=== PATIENT | female | born 1965 | race Caucasian/White ===

== ENCOUNTER 2023-02-13 15:44 | Inpatient (IN) | payer MEDICARE, OTHER, SELFPAY ==
[2023-02-13] VITALS (8 sets, daily range): BP systolic 68–112; BP diastolic 38–50; PULSE 59–93; RESP 18–20; TEMP 36.3–36.4; O2SAT 91–96; BMI 29.4
--- NOTE | 2023-02-13 15:49 | XR_ITS ---
PROCEDURE INFORMATION: Exam: XR Chest Exam date and time: 02/13/23 04:27 PM Age: 57 years old Clinical indication: Pain; Chest pressure; Additional info: A flutter TECHNIQUE: Imaging protocol: Radiologic exam of the chest. Views: 1 view. COMPARISON: CR CXR CHEST(2 VIEWS-NOT PORTABLE) 05/28/17 01:40 PM FINDINGS: Lungs: Unremarkable. No consolidation. Pleural spaces: Unremarkable. No pleural effusion. No pneumothorax. Heart/Mediastinum: Unremarkable. No cardiomegaly. Bones/joints: Unremarkable. IMPRESSION: No acute findings. Low volume chest.
--- NOTE | 2023-02-13 16:01 | ECG_ITS ---
APPROVED REPORT Exam: Resting ECG HR:90 bpm ECG Measurements Heart Rate 90 AXES NV 163 P 249 QRSd 72 QRS 46 QT 410 T 220 QTc 458 Conclusion A Fib/flutter ST DEVIATION AND MODERATE T-WAVE ABNORMALITY, CONSIDER INFERIOR ISCHEMIA [-0.1+ mV T-WAVE IN II/aVF] ABNORMAL ECG UNCONFIRMED REPORT Electronically signed by : Rafael Palmer MD 02/14/2023 14:32:21
[2023-02-13 16:10] LABS: Coronavirus 19, PCR Not Detected (NotDetected); Influenza A, PCR Not Detected (NotDetected); Influenza B, PCR Not Detected (NotDetected)
[2023-02-13 16:12] LABS: Basophils % 0.2 % (0.1-2.0); Eosinophils # 0.1 K/mm3 (0.0-0.4); Eosinophils % 1.1 % (0.1-12.0); Hematocrit 50.4 % (37.0-47.0); Hemoglobin 15.8 g/dL (12.2-16.2); Lymphocytes # 1.3 K/mm3 (0.7-4.5); Lymphocytes % 10.7 % (10-50); Mean Corpuscular HGB Conc 31.4 g/dL (31.8-35.4); Mean Corpuscular Hemoglobin 36.6 pg (27.0-31.2); Mean Corpuscular Volume 116.7 fl (81-99); Mean Platelet Volume 8.2 fl (7.4-10.4); Monocytes # 0.3 K/mm3 (0.1-1.0); Monocytes % 2.5 % (1.7-9.3); Neutrophils # 10.7 K/mm3 (1.8-7.8); Neutrophils % 85.5 % (37.0-80.0); Platelet Count 157 K/mm3 (142-424); Red Blood Count 4.32 M/mm3 (4.20-5.40); Red Cell Distribution Width 14.8 % (11.5-17.5); White Blood Count 12.5 K/mm3 (4.8-10.8)
[2023-02-13 16:19] LABS: ABG Base Excess -8.6 mmol/L (-2.4-2.3); ABG HCO3 17.5 mmhg (22.0-26.0); ABG Oxygen Saturation 94 % (90-100); ABG PCO2 34.6 mmhg (35.0-45.0); ABG PH 7.32 mmol/L (7.35-7.45); ABG PO2 70.3 mmhg (80-100); ABG TCO2 18.6 mmhg (23-27)
[2023-02-13 16:22] LABS: MANUAL DIFFERENTIAL MANUAL DIFFERENTIAL (MANUAL DIFF)
[2023-02-13 16:23] LABS: Chloride 103 mmol/L (98-107)
[2023-02-13 16:24] LABS: Potassium 3.8 mmoL/L (3.5-5.1); Sodium 136 mmol/L (136-145)
[2023-02-13 16:26] LABS: Alanine Aminotransferase 28 U/L (12-78); Alkaline Phosphatase 66 U/L (38-126); Aspartate Amino Transferase 31 U/L (14-36); Bilirubin,Total 0.4 mg/dl (0.2-1.3); Blood Urea Nitrogen 34 mg/dl (7-17); Creatinine Clearance Estimated 51 mL/min (50-200); Estimated Glomerular Filt Rate 33 ml/min (>60); GFR (African American) 40 ML/MIN (>60)
[2023-02-13 16:27] LABS: Albumin Level 3.2 g/dl (3.5-5.0); Albumin/Globulin Ratio 1.2 (1.1-1.8); Anion Gap 11.8 mEq/L (5-15); Calcium 7.7 mg/dl (8.4-10.2); Carbon Dioxide 25 mmol/L (22.0-30.0); Globulin 2.7 g/dL (1.3-3.2); Glucose 119 mg/dl (74-100); Magnesium 1.3 mg/dl (1.6-2.3); Phosphorous 4.4 mg/dl (2.5-4.5); Total Protein,Serum 5.9 g/dl (6.3-8.2)
[2023-02-13 16:38] LABS: Troponin I 0.07 ng/ml (0.00-0.034)
[2023-02-13 16:51] LABS: Eosinophils % 2 % (0-3); Lymphocytes % 11 % (10-50); Monocytes % 3 % (2-9); Neutrophils % 84 % (42-76); Total Cells Counted 100
[2023-02-13 16:52] LABS: Macrocytosis 1+; Stomatocytes 1+
[2023-02-13 16:53] LABS: Platelet Estimate Normal
[2023-02-13 16:54] LABS: Lactic Acid 0.9 mmol/L (0.7-2.1)
[2023-02-13 16:56] LABS: NT Pro Brain Natriuretic Pep. 4800 pg/mL (0-125)
--- NOTE | 2023-02-13 17:30 | EXP.HP ---
History of Present Illness *Admission Date: 02/13/23 *Reason for visit:: Weakness *History of present illness: 77-year-old female presenting as a transfer from [facility] emergency department due to a flutter and hypotension. On arrival to [facility] patient was in a flutter with RVR. Hypotensive. Reportedly had cardiomyopathy for which she was indicated a defibrillator however was lost to follow-up and did not receive any device. Noted to have an KAY. Started on Zosyn and given 3 L of normal saline and transferred to [facility] On arrival she is still hypotensive but maps have improved, she is feeling slightly better. Patient states that she has had 2 days of severe weakness nausea diarrhea. She has been unable to take care of daily activities. Symptoms started shortly after she was with her grandson. No sick contacts, and grandson is not ill. Says she goes in and out of atrial fibrillation, usually has palpitations when she is in it. Her symptoms are not consistent with prior episodes of A-fib. Drinks alcohol daily, no withdrawal symptoms previously. no other concerns or symptoms. [facility] Disclaimer: The information contained in this section may have been updated after the patient was seen, as this information can be updated by other users. Medical History (Updated 02/13/23 @ 17:43 by Anirudh Anguiano MD) Afib Alcohol dependence CHF (congestive heart failure) Cholecystitis COPD (chronic obstructive pulmonary disease) HLD (hyperlipidemia) HTN (hypertension) Surgical History History of ankle surgery Family History Other No significant family history Social History Smoking Status: Current every day smoker alcohol intake: current current occupational status: disabled Travel in the last 8 weeks: None Review of Systems Review of Systems Review of systems:: pertinent systems reviewed and negative unless documented below Meds Home Medications and Allergies Home Medications Medication Instructions Recorded Confirmed Type albuterol sulfate 90 mcg/actuation 1 puff inhalation QID PRN 02/13/23 02/13/23 History aerosol inhaler Breathing Problems atorvastatin 40 mg tablet 40 mg PO DAILY HLD 02/13/23 02/13/23 History bumetanide 2 mg tablet 2 mg PO DAILY CHF 02/13/23 02/13/23 History carvedilol 6.25 mg tablet 6.25 mg PO DAILY BLOOD PRESSURE 02/13/23 02/13/23 History diltiazem HCl 240 mg capsule,24 240 mg PO DAILY AFIB 02/13/23 02/13/23 History hr,extended release ipratropium 20 mcg-albuterol 100 1 puff inhalation DAILY Breathing 02/13/23 02/13/23 History mcg/actuation mist for inhalation problems (Combivent Respimat) sacubitril 24 mg-valsartan 26 mg 1 tab PO DAILY CHF 02/13/23 02/13/23 History tablet (Entresto) spironolactone 25 mg tablet 25 mg PO DAILY CHF 02/13/23 02/13/23 History New Prescriptions to Start Prescriptions: Allergies Allergy/AdvReac Type Severity Reaction Status Date / Time No Known Allergies Allergy Verified 02/13/23 15:49 Exam Data for Last 24 hours Vital signs and Labs for Last 24 Hours: Temp Pulse Resp BP Pulse Ox 97.6 F 90 18 112/47 L 96 02/13/23 16:00 02/13/23 16:43 02/13/23 16:43 02/13/23 16:43 02/13/23 16:43 Laboratory Results - last 24 hr 02/13/23 15:57: SARS-CoV-2 (PCR) Not detected, Influenza A Untype (PCR) Not detected, Influenza Type B (PCR) Not detected 02/13/23 15:57: WBC 12.5 H, RBC 4.32, Hgb 15.8, Hct 50.4 H, MCV 116.7 H, MCH 36.6 H, MCHC 31.4 L, RDW 14.8, Plt Count 157, MPV 8.2, Neut % (Auto) 85.5 H, Lymph % (Auto) 10.7, [place] % (Auto) 2.5, Eos % (Auto) 1.1, Baso % (Auto) 0.2, Neut # (Auto) 10.7 H, Lymph # (Auto) 1.3, [place] # (Auto) 0.3, Eos # (Auto) 0.1, Baso # (Auto) 0.0, Total Counted 100, Neutrophils % (Manual) 84 H, Lymphocytes % (Manoj
--- NOTE | 2023-02-13 18:31 | PC.NURSE ---
PT IS SITTING UP IN BED WITH FAMILY AT BEDSIDE. ALERT AND ORIENTED X4. WHEN PT INITIALLY ARRIVED TO THE FLOOR BP WAS 76/41 (RIGHT ARM) 72/50 (LEFT ARM). AFLUTTER ON TELEMETRY. HR 91. PT WAS TOTALLY COHERENT AND ABLE TO ANSWER QUESTIONS. NOTIFIED HOSPITALIST (ORDERS RECEIVED). PT RECEIVED AN ADDITIONAL LR IVF BOLUS. AFTER BOLUS PT'S MANUAL BP 72/42. O2 SATURATION 90-93 ON 3 L NC. LUNG SOUNDS HAVE SCATTERED RHONCHI AND BILATERAL CRACKLES. NOTIFIED HOSPITALIST AND HE STATED TO CONTINUE TO MONITOR PT AND DID NOT WANT TO START A VASOPRESSOR FOR NOW. PT WAS ABLE TO TOLERATE GETTING UP TO THE BSC WITH 1 ASSIST. NO COMPLAINTS OF LIGHTHEADEDNESS/DIZZINESS. PT VOIDED 1200 ML'S. UA COLLECTED AND SENT TO LAB. WILL CONTINUE TO MONITOR.
[2023-02-13 18:50] LABS: Microscopic, Urine URINE MICROSCOPIC (MICROSCOPIC)
[2023-02-13 18:55] LABS: Appearance,Urine CLEAR (Clear); Bilirubin,Urine Negative (Negative); Blood, Urine Negative (Negative); Color,Urine YELLOW (Yellow); Glucose,Urine (UA) Negative (Negative); Ketones,Urine Negative (Negative); Leukocyte Esterase,Urine TRACE (Negative); Nitrate,Urine Negative (Negative); Protein,Urine Negative (Negative); Urobilinogen,Urine 0.2 EU/dl (0.2)
[2023-02-13 19:14] LABS: Bacteria,Urine Trace /lpf
[2023-02-13 19:52] LABS: Troponin I 0.05 ng/ml (0.00-0.034)
[2023-02-13 22:55] LABS: Lactate Dehydrogenase 434 U/L (313-618)
[2023-02-13 22:57] LABS: Hemoglobin A1C 5.7 % (4.0-6.0)
--- NOTE | 2023-02-13 23:37 | EXP.EVENT.NO ---
Patient BP decreased below 70 SYS . patient in no acute distress. having talked with Dr. Anguiano at shift change and by phone, steroid added, nebulizers and started levophed. not able to obtain all labs . bp at && sys levophed increased . antibiotic changed .
--- NOTE | 2023-02-13 23:43 | EXP.HP ---
History of Present Illness *Admission Date: 02/13/23 *History of present illness: 77-year-old female presenting as a transfer from [facility] emergency department due to a flutter and hypotension. On arrival to [facility] patient was in a flutter with RVR. Hypotensive. Reportedly had cardiomyopathy for which she was indicated a defibrillator however was lost to follow-up and did not receive any device. Noted to have an KAY. Started on Zosyn and given 3 L of normal saline and transferred to [facility] On arrival she is still hypotensive but maps have improved, she is feeling slightly better. Patient states that she has had 2 days of severe weakness nausea diarrhea. She has been unable to take care of daily activities. Symptoms started shortly after she was with her grandson. No sick contacts, and grandson is not ill. Says she goes in and out of atrial fibrillation, usually has palpitations when she is in it. Her symptoms are not consistent with prior episodes of A-fib. Drinks alcohol daily, no withdrawal symptoms previously. no other concerns or symptoms. [facility] Disclaimer: The information contained in this section may have been updated after the patient was seen, as this information can be updated by other users. Medical History (Updated 02/13/23 @ 17:43 by Anirudh Anguiano MD) Afib Alcohol dependence CHF (congestive heart failure) Cholecystitis COPD (chronic obstructive pulmonary disease) HLD (hyperlipidemia) HTN (hypertension) Surgical History History of ankle surgery Family History Other No significant family history Social History (Updated 02/13/23 @ 17:44 by Anirudh Anguiano MD) Smoking Status: Current every day smoker alcohol intake: current current occupational status: disabled Travel in the last 8 weeks: None Meds Home Medications and Allergies Home Medications Medication Instructions Recorded Confirmed Type albuterol sulfate 90 mcg/actuation 1 puff inhalation QID PRN 02/13/23 02/13/23 History aerosol inhaler Breathing Problems atorvastatin 40 mg tablet 40 mg PO DAILY HLD 02/13/23 02/13/23 History bumetanide 2 mg tablet 2 mg PO DAILY CHF 02/13/23 02/13/23 History carvedilol 6.25 mg tablet 6.25 mg PO DAILY BLOOD PRESSURE 02/13/23 02/13/23 History diltiazem HCl 240 mg capsule,24 240 mg PO DAILY AFIB 02/13/23 02/13/23 History hr,extended release ipratropium 20 mcg-albuterol 100 1 puff inhalation DAILY Breathing 02/13/23 02/13/23 History mcg/actuation mist for inhalation problems (Combivent Respimat) sacubitril 24 mg-valsartan 26 mg 1 tab PO DAILY CHF 02/13/23 02/13/23 History tablet (Entresto) spironolactone 25 mg tablet 25 mg PO DAILY CHF 02/13/23 02/13/23 History New Prescriptions to Start Prescriptions: Allergies Allergy/AdvReac Type Severity Reaction Status Date / Time No Known Allergies Allergy Verified 02/13/23 15:49 Exam Data for Last 24 hours Vital signs and Labs for Last 24 Hours: Temp Pulse Resp BP Pulse Ox FiO2 97.4 F L 80 18 76/38 L 92 L 32 02/13/23 20:00 02/13/23 23:04 02/13/23 22:00 02/13/23 22:00 02/13/23 22:00 02/13/23 23:03 Laboratory Results - last 24 hr 02/13/23 15:57: SARS-CoV-2 (PCR) Not detected, Influenza A Untype (PCR) Not detected, Influenza Type B (PCR) Not detected 02/13/23 15:57: WBC 12.5 H, RBC 4.32, Hgb 15.8, Hct 50.4 H, MCV 116.7 H, MCH 36.6 H, MCHC 31.4 L, RDW 14.8, Plt Count 157, MPV 8.2, Neut % (Auto) 85.5 H, Lymph % (Auto) 10.7, [place] % (Auto) 2.5, Eos % (Auto) 1.1, Baso % (Auto) 0.2, Neut # (Auto) 10.7 H, Lymph # (Auto) 1.3, [place] # (Auto) 0.3, Eos # (Auto) 0.1, Baso # (Auto) 0.0, Total Counted 100, Neutrophils % (Manual) 84 H, Lymphocytes % (Manual) 11, Monocytes % (Manual) 3, Eosinophils % (Manual) 2, Platelet Estimate Normal, Macrocytosis 1+, Stomatocytes 1+ 02/13/23 1
--- NOTE | 2023-02-13 23:44 | PC.NURSE ---
Notified Edward OTT that 4 different staff members attempted to get labs on pt and were unsuccessful. INSTRUCTOR KINDERGARTEN states to cancel lab orders at this time.
--- NOTE | 2023-02-13 23:54 | PC.NURSE ---
Levo titrated up to 6mcg/min @2200 Levo titrated up to 8mcg/min @2334
--- NOTE | 2023-02-13 23:55 | PC.NURSE ---
Levo gtt titrated up to 10mcg/min
[2023-02-14] VITALS (25 sets, daily range): BP systolic 62–133; BP diastolic 31–80; PULSE 68–123; RESP 14–28; TEMP 36.5–36.9; O2SAT 85–98; BMI 30.2
--- NOTE | 2023-02-14 00:05 | PC.NURSE ---
Levo gtt to 12mcg/min at this time
--- NOTE | 2023-02-14 04:14 | PC.NURSE ---
Levo titrated to 16mcg/min @0030
--- NOTE | 2023-02-14 04:51 | PC.NURSE ---
PT HAS RESTED INTERMITTENTLY THIS SHIFT. PLACED ON LEVO DRIP, CURRENT RATE IS 16MCG/MIN BP IS STABLE. LUNGS ARE CRACKLY BILATERALLY. PT REMAINS ALERT AND ORIENTED. HAS BEEN A-FIB/FLUTTER TO NSR ON TELE. NO C/O PAIN. REMAINS ON 3L NASAL CANNULA. CALL CASTELLANOS WITHIN REACH.
[2023-02-14 07:01] LABS: Basophils % 0.1 % (0.1-2.0); Eosinophils # 0.1 K/mm3 (0.0-0.4); Eosinophils % 0.6 % (0.1-12.0); Hematocrit 42.9 % (37.0-47.0); Lymphocytes # 0.6 K/mm3 (0.7-4.5); Lymphocytes % 3.9 % (10-50); Mean Corpuscular Hemoglobin 36.1 pg (27.0-31.2); Mean Corpuscular Volume 116.7 fl (81-99); Mean Platelet Volume 7.9 fl (7.4-10.4); Monocytes # 0.3 K/mm3 (0.1-1.0); Monocytes % 1.9 % (1.7-9.3); Neutrophils # 14.5 K/mm3 (1.8-7.8); Neutrophils % 93.5 % (37.0-80.0); Platelet Count 179 K/mm3 (142-424); Red Blood Count 3.67 M/mm3 (4.20-5.40); Red Cell Distribution Width 14.9 % (11.5-17.5); White Blood Count 15.5 K/mm3 (4.8-10.8)
--- NOTE | 2023-02-14 07:04 | PC.NURSE ---
Titrated Levo gtt to 14mcg/min at this time
[2023-02-14 07:06] LABS: MANUAL DIFFERENTIAL MANUAL DIFFERENTIAL (MANUAL DIFF)
[2023-02-14 07:07] LABS: Alanine Aminotransferase 37 U/L (12-78); Albumin Level 3.1 g/dl (3.5-5.0); Albumin/Globulin Ratio 1.2 (1.1-1.8); Alkaline Phosphatase 69 U/L (38-126); Anion Gap 15.3 mEq/L (5-15); Aspartate Amino Transferase 35 U/L (14-36); Bilirubin,Total 0.2 mg/dl (0.2-1.3); Blood Urea Nitrogen 25 mg/dl (7-17); Calcium 7.4 mg/dl (8.4-10.2); Carbon Dioxide 19 mmol/L (22.0-30.0); Chloride 106 mmol/L (98-107); Chol/HDL Ratio 1.6 (1-3.5); Cholesterol 151 mg/dl (140-200); Creatinine Clearance Estimated 70 mL/min (50-200); Estimated Glomerular Filt Rate 46 ml/min (>60); GFR (African American) 56 ML/MIN (>60); Globulin 2.6 g/dL (1.3-3.2); Glucose 238 mg/dl (74-100); HDL Cholesterol 96 mg/dl (40-60); Magnesium 1.4 mg/dl (1.6-2.3); Phosphorous 3.8 mg/dl (2.5-4.5); Potassium 4.3 mmoL/L (3.5-5.1); Sodium 136 mmol/L (136-145); Total Protein,Serum 5.7 g/dl (6.3-8.2); Triglycerides 190 mg/dl (30-150); VLDL Cholesterol 38 mg/dL (0-40)
[2023-02-14 07:17] LABS: INR 1.12 (0.9-1.1)
[2023-02-14 07:18] LABS: Direct LDL Cholesterol 34.24 mg/dL (100-129)
--- NOTE | 2023-02-14 08:07 | EXP.PHA.CONS ---
Pharmacy Consult Date: 02/14/23 Time: 08:07 Referring provider: DR. RAMOS Reason for Consult:: VANCOMYCIN DOSING Allergies Allergy/AdvReac Type Severity Reaction Status Date / Time No Known Allergies Allergy Verified 02/13/23 15:49 Home Medications Medication Instructions Recorded Confirmed Type albuterol sulfate 90 mcg/actuation 1 puff inhalation QID PRN 02/13/23 02/13/23 History aerosol inhaler Breathing Problems atorvastatin 40 mg tablet 40 mg PO DAILY HLD 02/13/23 02/13/23 History bumetanide 2 mg tablet 2 mg PO DAILY CHF 02/13/23 02/13/23 History carvedilol 6.25 mg tablet 6.25 mg PO DAILY BLOOD PRESSURE 02/13/23 02/13/23 History diltiazem HCl 240 mg capsule,24 240 mg PO DAILY AFIB 02/13/23 02/13/23 History hr,extended release ipratropium 20 mcg-albuterol 100 1 puff inhalation DAILY Breathing 02/13/23 02/13/23 History mcg/actuation mist for inhalation problems (Combivent Respimat) sacubitril 24 mg-valsartan 26 mg 1 tab PO DAILY CHF 02/13/23 02/13/23 History tablet (Entresto) spironolactone 25 mg tablet 25 mg PO DAILY CHF 02/13/23 02/13/23 History New Prescriptions to Start Prescriptions: Height: 1.68 m Weight: 85.139 kg Laboratory Results:: Laboratory Results - last 24 hr 02/13/23 15:57: SARS-CoV-2 (PCR) Not detected, Influenza A Untype (PCR) Not detected, Influenza Type B (PCR) Not detected 02/13/23 15:57: WBC 12.5 H, RBC 4.32, Hgb 15.8, Hct 50.4 H, MCV 116.7 H, MCH 36.6 H, MCHC 31.4 L, RDW 14.8, Plt Count 157, MPV 8.2, Neut % (Auto) 85.5 H, Lymph % (Auto) 10.7, [place] % (Auto) 2.5, Eos % (Auto) 1.1, Baso % (Auto) 0.2, Neut # (Auto) 10.7 H, Lymph # (Auto) 1.3, [place] # (Auto) 0.3, Eos # (Auto) 0.1, Baso # (Auto) 0.0, Total Counted 100, Neutrophils % (Manual) 84 H, Lymphocytes % (Manual) 11, Monocytes % (Manual) 3, Eosinophils % (Manual) 2, Platelet Estimate Normal, Macrocytosis 1+, Stomatocytes 1+ 02/13/23 15:57: Sodium 136, Potassium 3.8, Chloride 103, Carbon Dioxide 25, Anion Gap 11.8, BUN 34 H, Creatinine 1.60 H, Estimated Creat Clear 51, Estimated GFR 33 L, Est GFR ( Amer) 40 L, Glucose 119 H, Calcium 7.7 L, Phosphorus 4.4, Magnesium 1.3 L, Total Bilirubin 0.4, AST 31, ALT 28, Alkaline Phosphatase 66, Troponin I 0.07 H, NT-Pro-B Natriuret Pep 4800 H, Total Protein 5.9 L, Albumin 3.2 L, Globulin 2.7, Albumin/Globulin Ratio 1.2 02/13/23 15:57: Hemoglobin A1c 5.7 02/13/23 16:00: ABG pH 7.32 L, ABG pCO2 34.6 L, ABG pO2 70.3 L, ABG HCO3 17.5 L, ABG Total CO2 18.6 L, ABG O2 Saturation 94, ABG Base Excess -8.6 L 02/13/23 16:30: Lactate 0.9 02/13/23 18:02: Urine Color Yellow, Urine Appearance Clear, Urine pH 5.0, Ur Specific [place] 1.010, Urine Protein Negative, Urine Glucose (UA) Negative, Urine Ketones Negative, Urine Blood Negative, Urine Nitrate Negative, Urine Bilirubin Negative, Urine Urobilinogen 0.2, Ur Leukocyte Esterase Trace, Urine RBC None, Urine WBC 10-20, Ur Squamous Epith Cells 5-10, Urine Bacteria Trace 02/13/23 19:10: Troponin I 0.05 H 02/13/23 19:10: Lactate Dehydrogenase 434 02/14/23 06:50: WBC 15.5 H, RBC 3.67 L, Hct 42.9, MCV 116.7 H, MCH 36.1 H, MCHC 31.0 L, RDW 14.9, Plt Count 179, MPV 7.9, Neut % (Auto) 93.5 H, Lymph % (Auto) 3.9 L, [place] % (Auto) 1.9, Eos % (Auto) 0.6, Baso % (Auto) 0.1, Neut # (Auto) 14.5 H, Lymph # (Auto) 0.6 L, [place] # (Auto) 0.3, Eos # (Auto) 0.1, Baso # (Auto) 0.0 02/14/23 06:50: PT 12.0, INR 1.12 H 02/14/23 06:50: Sodium 136, Potassium 4.3, Chloride 106, Carbon Dioxide 19 L, Anion Gap 15.3 H, BUN 25 H D, Creatinine 1.20 H D, Estimated Creat Clear 70, Estimated GFR 46 L, Est GFR ( Amer) 56 L D, Glucose 238 H D, Calcium 7.4 L, Phosphorus 3.8, Magnesium 1.4 L, Total Bilirubin 0.2, AST 35, ALT 37 D, Alkaline Phosphatase 69, Total Protein 5.7 L, Albumin 3.1 L, Globulin 2.6, Albumin/Globulin Ratio 1.2, Triglycerides 190 H, Cholesterol 151, LDL Cholesterol Direct 34.24 L, VLDL Cholesterol 38, HDL Cholesterol 96 H, Cholesterol/HDL Ratio 1.6 Medical History: Medical H
[2023-02-14 08:20] LABS: Lymphocytes % 12 % (10-50); Monocytes % 4 % (2-9); Neutrophils % 84 % (42-76); Platelet Estimate Normal; Total Cells Counted 100
[2023-02-14 08:21] LABS: Hemoglobin 13.3 g/dL (12.2-16.2); Macrocytosis 2+
--- NOTE | 2023-02-14 08:51 | HMH.PHAINT1 ---
Pharmacy Intervention Comments: MEDICATION RECONCILIATION COMPLETED ON PATIENT USING EXTERNAL FILL HISTORY FROM PHARMACY AND PATIENT INTERVIEW. -ELSA MORENO, NIKKOD
--- NOTE | 2023-02-14 09:13 | EXP.ACUTE.PN ---
Subjective *Date: 02/14/23 *Time: 09:13 Interval history: No issues, feeling better. Medical Exam Vital signs and Labs for Last 24 Hours: Vital Signs Temp Pulse Pulse Pulse Resp BP BP 02/14/23 08:00 82 02/14/23 08:00 79 20 102/65 L 02/14/23 08:00 97.9 F 02/14/23 07:03 117/75 02/14/23 06:30 82 02/14/23 06:30 82 02/14/23 06:30 02/14/23 06:00 83 20 110/65 02/14/23 04:00 80 02/14/23 00:30 62/31 L 02/14/23 04:00 98.2 F 77 18 96/63 L 02/14/23 00:00 70 02/14/23 02:00 73 18 89/55 L 02/14/23 01:00 79 94/48 L 02/13/23 20:00 70 02/14/23 00:00 02/14/23 00:00 97.7 F 68 17 83/45 L 02/13/23 23:45 76 68/43 L 02/13/23 23:34 75 77/43 L 02/13/23 22:00 72 18 76/38 L 02/13/23 20:00 97.4 F L 59 L 18 73/40 L 02/13/23 20:00 02/13/23 23:04 80 02/13/23 23:04 81 02/13/23 23:03 02/13/23 18:00 89 20 74/45 L 02/13/23 16:43 90 18 112/47 L 02/13/23 16:00 97.6 F 93 H 18 72/50 L 02/13/23 16:00 91 H 20 76/41 L 02/13/23 16:00 91 H Pulse Ox FiO2 02/14/23 08:00 02/14/23 08:00 95 02/14/23 08:00 02/14/23 07:03 02/14/23 06:30 02/14/23 06:30 02/14/23 06:30 93 L 02/14/23 06:00 92 L 02/14/23 04:00 02/14/23 00:30 02/14/23 04:00 93 L 02/14/23 00:00 02/14/23 02:00 92 L 02/14/23 01:00 02/13/23 20:00 02/14/23 00:00 92 L 02/14/23 00:00 92 L 02/13/23 23:45 02/13/23 23:34 02/13/23 22:00 92 L 02/13/23 20:00 91 L 02/13/23 20:00 91 L 02/13/23 23:04 02/13/23 23:04 02/13/23 23:03 32 02/13/23 18:00 92 L 02/13/23 16:43 96 02/13/23 16:00 95 02/13/23 16:00 95 02/13/23 16:00 Intake and Output 02/13/23 02/14/23 02/14/23 23:59 07:59 15:59 Intake Total 1758 / 1758 1338.475 / 1578.475 240 / 1578.475 Output Total 1200 / 1200 1750 / 1750 Balance 558 / 558 -411.525 / -171.525 240 / -171.525 Intake: Intake, Oral Amount 240 / 240 Intake, Total IV Amount 1758 / 1758 1338.475 / 1338.475 0.9 % Sodium Chloride 1000ML 1, 620 / 620 000 ml @ 150 mls/hr IV .Q6H40M [facility] Rx#:[id number] Cefepime HCl 1 gm In 0.9 % 50 / 50 Sodium Chloride 50 ml @ 100 mls /hr IV Q12H [facility] Rx#:[id number] Lactated Ringers 1000ML 1,000 1758 / 1758 ml @ 999 mls/hr IV .Q1H1M [facility] Rx#:[id number] Norepinephrine Bitartrate 8 mg 182 / 182 In Dextrose 5 % in Water 250 ml @ 5 MCG/MIN 9.675 mls/hr IV . Q24H [facility] Rx#:[id number] Piperacillin/Tazo 3.375 gm In 0 50 / 50 .9 % Sodium Chloride 50 ml @ 100 mls/hr IV Q6H [facility] Rx#: [id number] Vancomycin/Water For Inj (Peg) 350 / 350 1.75 gm In 350 ml @ 175 mls/hr IV ONCE [facility] Rx#:[id number] Output: Output, Urine Amount 1200 / 1200 1750 / 1750 Other: Number of Unmeasured Voids 1 Weight 85.139 kg 85.139 kg Patient Weight 02/14/23 23:59 Weight 85.139 kg Laboratory Results - last 24 hr 02/13/23 15:57: SARS-CoV-2 (PCR) Not detected, Influenza A Untype (PCR) Not detected, Influenza Type B (PCR) Not detected 02/13/23 15:57: WBC 12.5 H, RBC 4.32, Hgb 15.8, Hct 50.4 H, MCV 116.7 H, MCH 36.6 H, MCHC 31.4 L, RDW 14.8, Plt Count 157, MPV 8.2, Neut % (Auto) 85.5 H, Lymph % (Auto) 10.7, [place] % (Auto) 2.5, Eos % (Auto) 1.1, Baso % (Auto) 0.2, Neut # (Auto) 10.7 H, Lymph # (Auto) 1.3, [place] # (Auto) 0.3, Eos # (Auto) 0.1, Baso # (Auto) 0.0, Total Counted 100, Neutrophils % (Manual) 84 H, Lymphocytes % (Manual) 11, Monocytes % (Manual) 3, Eosinophils % (Manual) 2, Platelet Estimate Normal, Macrocytosis 1+, Stomatocytes 1+ 02/13/23 15:57: Sodium 136, Potassium 3.8, Chloride 103, Carbon Dioxide 25, Anion Gap 11.8, BUN 34 H, Creatinine 1.60 H, Estimated Creat Clear 51, Estimated GFR 33 L, Est GFR ( Amer)
[2023-02-14 10:51] LABS: Chloride 106 mmol/L (98-107)
[2023-02-14 10:52] LABS: Sodium 137 mmol/L (136-145)
[2023-02-14 10:55] LABS: Blood Urea Nitrogen 24 mg/dl (7-17); Calcium 7.6 mg/dl (8.4-10.2); Carbon Dioxide 24 mmol/L (22.0-30.0); Creatinine Clearance Estimated 70 mL/min (50-200); Estimated Glomerular Filt Rate 46 ml/min (>60); GFR (African American) 56 ML/MIN (>60); Glucose 158 mg/dl (74-100)
--- NOTE | 2023-02-14 11:43 | PC.NURSE ---
Addendum entered by Mirian Batista RN 02/14/23 13:30: 1230 BP 117/67, LEVOPHED DRIP TITRATED TO 4 MCG Original Note: 0930 BP 117/77, LEVOPHED DRIP TITRATED FROM 14 MCG TO 10 MCG. 1100 BP 119/75, LEVOPHED DRIP TITRATED TO 8 MCG 1130 BP 113/53, LEVOPHED DRIP TITRATED TO 6 MCG
--- NOTE | 2023-02-14 17:14 | PC.NURSE ---
Addendum entered by Mirian Batista RN 02/14/23 18:17: 1800 BP 124/71 WITH LEVOPHED AT 1 MCG. NOTIFIED HOSPITALIST. DRIP HAS BEEN SHUT OFF. Original Note: PT IS RESTING IN BED. ALERT AND ORIENTED X4. EATING AND DRINKING WELL. PT'S BP 89/56. LEVOPHED DRIP AT 2 MCG. LUNG SOUNDS DIMINISHED WITH BILATERAL CRACKLES. ABDOMEN SOFT/NON TENDER WITH ACTIVE BOWEL SOUNDS. PT HAS TOLERATED GETTING UP TO THE BSC WITH 1 ASSIST. VOIDING WELL. NSR ON TELEMETRY. O2 SATURATION 90-93% ON ROOM AIR. WILL CONTINUE TO MONITOR.
[2023-02-14 18:18] LABS: Anion Gap 11.3 mEq/L (5-15); Blood Urea Nitrogen 20 mg/dl (7-17); Calcium 7.5 mg/dl (8.4-10.2); Carbon Dioxide 24 mmol/L (22.0-30.0); Chloride 106 mmol/L (98-107); Creatinine Clearance Estimated 83 mL/min (50-200); Estimated Glomerular Filt Rate 57 ml/min (>60); GFR (African American) 69 ML/MIN (>60); Glucose 112 mg/dl (74-100); Potassium 4.3 mmoL/L (3.5-5.1); Sodium 137 mmol/L (136-145)
--- NOTE | 2023-02-14 19:44 | PC.NURSE ---
Pt asking to go outside at this time. MODELING ANALYST Alfie Leon made aware. Both MODELING ANALYST and this RN strongly encouraged pt to stay in designated care area. Pt refuses. Pt notified of risks to going outside - not being able to monitor heart rhythm and vital signs, no use of oxygen and pt currently on 3 L nc. Pt notified that by leaving floor, she would assume the risk of harm or injury that could occur while away from designated care area. Informed consent to leave area of care ama signed. Pt taken off of all monitoring and oxygen removed. IVs wrapped up with coban and marked for placement. Pt ambulated off of floor at 1942.
--- NOTE | 2023-02-14 19:48 | P.EN_ITS ---
Nurse called from the floor to update me that the patient wanted to go outside and smoke . That the patient was adamant about this. I came to the room to speak with the patient and explained in detail how dangerous this could be ( as levophed) had just recently been stopped and that at one time her sys. BP. was in the 60 s . That I have told her not to do this. I acknowledged that I could not stop her but I would like her to sign paper work to acknowledge that she knew she would be responsible for herself that she would be out of visual view, off oxygen and monitor. There was no other family with her . The storage facility housekeeper is aware and also has gone into speak with the patient . I went to ER and update the staff of the present situation. Discussed with storage facility housekeeper plan such as [employer] and hospital staff would respond and/or call fire dept if assistance was needed to return her to the the floor.
--- NOTE | 2023-02-14 19:55 | PC.NURSE ---
spoke with Alfie Gil regarding patient request to go smoke. I suggested that I could go in and speak with patient. When I enter patient room nurse reported that she had walk down. I immediately went down to talk with patient. On my arrival, patient reported that she realized that smoking wasn't a good idea and she should have listened to doctor and staff. Patient denied chest pain, or shortness of breath. color dusky. Patient return to floor via wheel chair. Reeducated patient on smoking cessation and risk of leaving hospital. Explained to patient that she could use a nicotine patch. Stated that she would not leave the floor. Spoke with Alfie ORDONEZ aware, order for nicotine patch given.
--- NOTE | 2023-02-14 20:04 | PC.NURSE ---
Pt back up to room at 1957- BP 133/80, HR 123, O2 on RA 85-87%, RR- 28. Pt hooked back up to monitoring and O2 reapplied. Pt c/o pain while coughing on left side. Pt now sats 94% on 2 L nc.
--- NOTE | 2023-02-14 21:26 | PC.NURSE ---
pump cleared for mult. shifts.
[2023-02-15] VITALS (10 sets, daily range): BP systolic 92–138; BP diastolic 53–79; PULSE 88–106; RESP 16–22; TEMP 36.7–37; O2SAT 91–96; BMI 30.3
--- NOTE | 2023-02-15 02:04 | PC.NURSE ---
Pt c/o non stop benitez horse pain in bilat feet. On assessment, pedal pulse strong, feet are warm, pt has small white dry patches on bilat feet but pt states this is normal for her. Pt was assisted to ambulate around room, feet were elevated and warm blanket applied. Tylenol administered. Pt states her pain is still there and has slightly gotten worse. MOLDER MACHINE TENDER Divine Leon notified at this time.
--- NOTE | 2023-02-15 02:24 | EXP.EVENT.NO ---
patient reported not being able to sleep due to top of feet cramping . left worst then right . exam found no signs of injury or muscle spasm . patient is daily etoh drinker. stated had had hydrocodone in past with no ill side efeffects. will prescribe prn 7.5mg hydrocoodne to see if releavie symptoms and help pateint rest . during exam no distress was noted in patient
--- NOTE | 2023-02-15 06:15 | PC.NURSE ---
No c/o voiced to staff since PRN Ted last night. Pt continues on 2 L nc , tolerating well with sats >90%. NSR on tele. SBP have been >90. Pt resting in bed at this time, call light within reach.
[2023-02-15 06:21] LABS: Basophils % 0.2 % (0.1-2.0); Eosinophils % 0.2 % (0.1-12.0); Hematocrit 38.4 % (37.0-47.0); Lymphocytes # 0.6 K/mm3 (0.7-4.5); Lymphocytes % 6.7 % (10-50); Mean Corpuscular HGB Conc 31.2 g/dL (31.8-35.4); Mean Corpuscular Hemoglobin 35.9 pg (27.0-31.2); Mean Corpuscular Volume 114.9 fl (81-99); Mean Platelet Volume 7.9 fl (7.4-10.4); Monocytes # 0.4 K/mm3 (0.1-1.0); Monocytes % 3.9 % (1.7-9.3); Neutrophils # 8.1 K/mm3 (1.8-7.8); Platelet Count 151 K/mm3 (142-424); Red Blood Count 3.34 M/mm3 (4.20-5.40); Red Cell Distribution Width 14.8 % (11.5-17.5); White Blood Count 9.1 K/mm3 (4.8-10.8)
[2023-02-15 06:23] LABS: MANUAL DIFFERENTIAL MANUAL DIFFERENTIAL (MANUAL DIFF)
[2023-02-15 06:27] LABS: Anion Gap 10.7 mEq/L (5-15); Blood Urea Nitrogen 15 mg/dl (7-17); Calcium 7.7 mg/dl (8.4-10.2); Carbon Dioxide 24 mmol/L (22.0-30.0); Chloride 106 mmol/L (98-107); Creatinine Clearance Estimated 105 mL/min (50-200); Estimated Glomerular Filt Rate 74 ml/min (>60); GFR (African American) 89 ML/MIN (>60); Glucose 193 mg/dl (74-100); Magnesium 1.2 mg/dl (1.6-2.3); Potassium 4.7 mmoL/L (3.5-5.1); Sodium 136 mmol/L (136-145)
[2023-02-15 06:41] LABS: Lymphocytes % 12 % (10-50); Monocytes % 1 % (2-9); Neutrophils % 87 % (42-76); Platelet Estimate Normal; Stomatocytes 2+; Total Cells Counted 100
[2023-02-15 06:42] LABS: Macrocytosis 1+
--- NOTE | 2023-02-15 11:10 | EXP.ACUTE.PN ---
Subjective *Date: 02/15/23 *Time: 11:19 Interval history: Patient feeling much better this morning. Blood pressure stable off of Levophed. Remains afebrile. Stable on room air. No nausea or vomiting. Denies any chest pain or shortness of breath. Urine obtained from [facility] shows Klebsiella, sensitive to cephalosporins. Patient independently ambulatory this morning. Overall looking better. Medical Exam Vital signs and Labs for Last 24 Hours: Vital Signs Temp Pulse Pulse Pulse Resp BP BP 02/15/23 08:00 93 H 02/15/23 10:00 99 H 20 100/59 L 02/15/23 08:00 93 H 20 95/63 L 02/15/23 08:00 90 02/15/23 06:30 98 H 02/15/23 06:30 100 H 02/15/23 06:30 02/15/23 07:31 98.2 F 02/15/23 06:00 88 16 92/53 L 02/15/23 04:00 98.4 F 104 H 18 104/56 L 02/15/23 04:00 100 H 02/15/23 03:08 02/15/23 02:00 106 H 20 97/61 L 02/15/23 00:00 100 H 02/15/23 00:00 02/15/23 00:00 98.6 F 102 H 22 100/65 L 02/14/23 22:00 107 H 20 112/70 02/14/23 20:00 110 H 02/14/23 20:00 111 H 02/14/23 20:35 02/14/23 20:34 81 02/14/23 20:34 79 02/14/23 20:20 106 H 14 119/68 02/14/23 20:05 02/14/23 19:58 123 H 28 H 133/80 02/14/23 19:35 98.3 F 103 H 20 100/62 L 02/14/23 18:00 87 18 124/71 02/14/23 16:00 93 H 18 96/61 L 02/14/23 16:00 95 H 02/14/23 16:00 98.5 F 02/14/23 12:00 76 02/14/23 14:00 91 H 98/62 L 02/14/23 13:40 81 02/14/23 13:40 89 02/14/23 13:40 02/14/23 11:30 73 113/53 L 02/14/23 11:36 98.3 F Pulse Ox FiO2 02/15/23 08:00 93 L 02/15/23 10:00 91 L 02/15/23 08:00 93 L 02/15/23 08:00 02/15/23 06:30 02/15/23 06:30 02/15/23 06:30 95 02/15/23 07:31 02/15/23 06:00 92 L 02/15/23 04:00 91 L 02/15/23 04:00 02/15/23 03:08 91 L 02/15/23 02:00 92 L 02/15/23 00:00 02/15/23 00:00 91 L 02/15/23 00:00 92 L 02/14/23 22:00 94 L 02/14/23 20:00 02/14/23 20:00 94 L 02/14/23 20:35 32 02/14/23 20:34 02/14/23 20:34 02/14/23 20:20 95 02/14/23 20:05 94 L 02/14/23 19:58 85 L 02/14/23 19:35 96 02/14/23 18:00 91 L 02/14/23 16:00 93 L 02/14/23 16:00 02/14/23 16:00 02/14/23 12:00 02/14/23 14:00 02/14/23 13:40 02/14/23 13:40 02/14/23 13:40 98 02/14/23 11:30 02/14/23 11:36 Intake and Output 02/14/23 02/15/23 02/15/23 23:59 07:59 15:59 Intake Total 480 / 2538.475 880 / 880 Output Total 600 / 2950 300 / 300 Balance -120 / -411.525 580 / 580 Intake: Intake, Oral Amount 480 / 1200 480 / 480 Intake, Total IV Amount 400 / 400 Cefepime HCl 2 gm In 0.9 % 100 / 100 Sodium Chloride 100 ml @ 200 mls/hr IV Q8H [facility] Rx#:[id number] Vancomycin/Water For Inj (Peg) 300 / 300 1.5 gm In 300 ml @ 150 mls/hr IV Q24H [facility] Rx#:[id number] Output: Output, Urine Amount 600 / 2950 300 / 300 Other: Number of Unmeasured Voids 1 1 Number of Bowel Movements 1 Weight 85.684 kg Patient Weight 02/15/23 23:59 Weight 85.684 kg Laboratory Results - last 24 hr 02/14/23 17:55: Sodium 137, Potassium 4.3, Chloride 106, Carbon Dioxide 24, Anion Gap 11.3, BUN 20 H, Creatinine 1.00, Estimated Creat Clear 83, Estimated GFR 57 L, Est GFR ( Amer) 69 D, Glucose 112 H D, Calcium 7.5 L 02/15/23 05:41: Sodium 136, Potassium 4.7, Chloride 106, Carbon Dioxide 24, Anion Gap 10.7, BUN 15, Creatinine 0.80, Estimated Creat Clear 105, Estimated GFR 74, Est GFR ( Amer) 89 D, Glucose 193 H D, Calcium 7.7 L 02/15/23 05:41: WBC 9.1 D, RBC 3.34 L, Hgb 12.0 L, Hct 38.4, MCV 114.9 H, MCH 35.9 H, MCHC 31.2 L, RDW 14.8, Plt Count 151, MPV 7.9, Neut % (Auto) 89.0 H, Lymph % (Auto) 6.7 L, Mayes % (Auto) 3.9, Eos % (Auto) 0.
--- NOTE | 2023-02-15 11:38 | PC.NURSE ---
Addendum entered by Ceci Menendez RN 02/15/23 11:48: pt also advised to follow up with her PCP this week, she states she will call first thing in the morning Original Note: pt told SRNA that she had called for a ride and that she was leaving, Dr. Massey came to bedside and talked with patient, pt still wants to leave AMA so she can smoke, pt educated on risks of leaving AMA and verbalized understanding
--- NOTE | 2023-02-15 12:52 | EXP.DC.SUM ---
General Admission date:: 02/13/23 Discharge date: 02/15/23 HPI HPI HPI: 77-year-old female presenting as a transfer from [facility] emergency department due to a flutter and hypotension. On arrival to [facility] patient was in a flutter with RVR. Hypotensive. Reportedly had cardiomyopathy for which she was indicated a defibrillator however was lost to follow-up and did not receive any device. Noted to have an KYA. Started on Zosyn and given 3 L of normal saline and transferred to [facility] On arrival she is still hypotensive but maps have improved, she is feeling slightly better. Patient states that she has had 2 days of severe weakness nausea diarrhea. She has been unable to take care of daily activities. Symptoms started shortly after she was with her grandson. No sick contacts, and grandson is not ill. Says she goes in and out of atrial fibrillation, usually has palpitations when she is in it. Her symptoms are not consistent with prior episodes of A-fib. Drinks alcohol daily, no withdrawal symptoms previously. no other concerns or symptoms. Hospital Course Hospital Course Hospital Course: 57-year-old with heart failure reduced ejection fraction lost to follow-up prior to receiving AICD, paroxysmal atrial fibrillation not previously on anticoagulation presenting in sepsis unknown source (suspected UTI) hypotensive and in a flutter with rapid ventricular response.? [id number] ultrasound demonstrated ejection fraction approximately 40% with collapsible IVC. She has received 4-1/2 L of normal saline and began developing new oxygen requirement so fluids have been stopped. Initially hypotensive, able to wean off Levophed and steroids for 24 hours prior to discharge. Patient became agitated because she could not go out to smoke. Opted to leave A. Her urine culture did return prior to her leaving, would benefit from completing 5-day course of cephalosporin for UTI. Currently in sinus rhythm. Also needs an echo to evaluate EF as she has previously had an EF reduced to the point that she needed a LifeVest. Strong concern for patient's risk of decompensation given incomplete antibiotic course and risk of heart failure. No medication sent given patient's refusal to stay for further care. Problems addressed as follows: Sepsis, urinary source -Urine culture from returned positive for Klebsiella, sensitive to cephalosporins. -Discontinued vancomycin and cefepime, transition to ceftriaxone daily -Stable off pressors for over 24 hours -Discontinued stress dose steroids. Atrial flutter with RVR-resolved, currently normal sinus rhythm Heart failure with reduced ejection fraction -Started on Xarelto - Consult cardiology - Echocardiogram pending for the morning. Reports previous use of LifeVest, concerned that it is still reduced. - Continue GDMT once hemodynamics improve - Consider AICD outpatient - Echo ordered, was scheduled to be obtained in the morning of 02/16 Alcohol dependency Denies withdrawal, no significant CIWA scores. Did not require any Ativan Macrocytosis B complex vitamin Likely related to alcohol use Continue outpatient COPD-albuterol DuoNebs Hypomagnesemia-replete Nausea Zofran and Phenergan Diarrhea-Imodium as needed Tobacco dependence: Wanting to go smoke. Treated with nicotine replacement therapy/patch. Patient still adamant about smoking and refused to stay in the hospital any longer, left AMA. Encouraged her to follow-up with her PCP in the near future for further management of her conditions and to seek further medical care if shows any signs of decompensation. Exam Data for Last 24 hours Vital signs and Labs for Last 24 Hours: Temp Pulse Resp BP Pulse Ox FiO2 98.0 F 99 H 20 138/79 96 32 02/15/23 11:28 02/15/23 11:28 02/15/23 11:28 02/15/23 11:28 02/15/23 11:28 02/14/23 20:35 Laboratory Results - last 24 hr 02/14/23 17:55: [place]
== END 2023-02-15 11:38 | disposition left against medical advice (07) | DRG 872 ==
PROVIDERS: Internal Medicine Adolescent Medicine; Nurse Practitioner Family; Admitting Provider Student in an Organized Health Care Education/Training Program; PCP Nurse Practitioner Family; Visit Provider Student in an Organized Health Care Education/Training Program
DX: A41.9 Sepsis, unspecified organism (principal); I48.92 Unspecified atrial flutter; N17.9 Acute kidney failure, unspecified; I50.20 Unspecified systolic (congestive) heart failure; J44.9 Chronic obstructive pulmonary disease, unspecified; F10.20 Alcohol dependence, uncomplicated; E83.42 Hypomagnesemia; R11.0 Nausea; R19.7 Diarrhea, unspecified; D75.89 Other specified diseases of blood and blood-forming organs; F17.200 Nicotine dependence, unspecified, uncomplicated; I11.0 Hypertensive heart disease with heart failure
CPT/HCPCS: 36415; 71045; 80048; 80053; 80061; 81001; 82803; 83036; 83605; 83615; 83735; 83880; 84100; 84484; 85007; 85025; 85610; 87086; 87636; 93005; 94640; 94760; C9803; J0692; J2543; J3475; U0003; U0005